=== PATIENT | female | born 1950 | race Caucasian/White ===

== ENCOUNTER → 2016-07-06 | Outpatient (CLI) | payer OTHER ==
[~2016-07-06] MED LIST: BIOTIN5 MG PO; EVISTA60 MG PO; LAMOTRIGINE100 MG PO; MULTIPLE VITAMIN PO; PERCOCET1 TA1 PO; VICODIN EQUIVAL1 TAB PO
--- NOTE | 2016-07-06 14:24 | DIAGNOSTIC IMAGING REPORT ---
PROCEDURE: XR BARIUM SWALLOW INDICATION: Dysphagia. Heartburn. History of Harish fundoplication. TECHNIQUE: Double contrast study. Fluoroscopy time, 3.8 minutes; 1135.11 mGy. 70 fluoroscopic images (including cinefluoroscopy). COMPARISON: Comparison made to upper GI on 02/16/2015. FINDINGS: Pharyngoesophagus demonstrates moderate prominence and hypertrophy of the cricopharyngeus muscle with 50% intermittent narrowing of the proximal esophagus. The rest of the pharyngoesophagus is normal. There are moderate degenerative changes of the cervical spine. Findings suggest slipped Harish fundoplication with recurrent small hiatal hernia. Patulous gastroesophageal junction with moderate to marked gastroesophageal reflux. Mild thickening of the esophageal folds. IMPRESSION: 1. Moderate prominence of the cricopharyngeus muscle associated intermittent 50% narrowing of the proximal esophagus. 2. Findings suggest slipped Harish fundoplication with small recurrent hiatal hernia. 3. Patulous GE junction with moderate to marked gastroesophageal reflux. 4. Mild thickening of the esophageal folds consistent with reflux esophagitis. 5. Findings discussed with Dr. Maddox.
== END ==
LOC: XR SRH 06-29 10:30
DX: K21.9 Gastro-esophageal reflux disease without esophagitis (principal); K44.9 Diaphragmatic hernia without obstruction or gangrene